=== PATIENT | male | born 2000 | race Caucasian/White ===

== ENCOUNTER 2021-10-25 08:14 | Emergency (ER) | payer BC, MEDICAID ==
[2021-10-25] MEDS ORDERED: HYDROmorphone 1 MG/ML Syringe IVPUSH STA (11:18)
[2021-10-25] MEDS ORDERED: Ondansetron 4 MG/2 ML SDV IVPUSH ONE (11:18)
[2021-10-25] MEDS ORDERED: Sodium Chloride 0.9% 10 ML Syringe FLUSH PRN ×2 (11:18→11:41)
[2021-10-25] MEDS ORDERED: Sodium Chloride 0.9% 1,000 ML IV SCH (11:30)
[2021-10-25] MEDS ORDERED: Iopamidol 612 MG/ML 100 ML Bottle IVPUSH ONE (11:41)
[2021-10-25 13:18] LABS: ESTIMATED GFR 111 mL/min (>60)
== END 2021-10-25 15:10 | disposition home or self-care (01) ==
LOC: JD.ED 08:14
DX: R11.2 Nausea with vomiting, unspecified (principal)
CPT/HCPCS: 36415; 74177; 76705; 80053; 80306; 81001; 82436; 83690; 85025; 86140; 96361; 96374; 96375; 99284; J1170; J2405; J3490; J7030; Q9967

== ENCOUNTER 2021-11-09 10:57 | Day surgery (SDC) | payer MEDICAID ==
[~2021-11-09 10:57] MED LIST: Lactated Ringers 1,000 ML IV SCH; Lidocaine 1%/Sod Bicarbonate in NS 8.4% 1 ML Syringe IDERM PRN; Sodium Chloride 0.9% 10 ML Syringe FLUSH PRN; Sodium Chloride 0.9% 10 ML Syringe FLUSH SCH
[2021-11-09] MEDS ORDERED: Propofol 200 MG/20 ML SDV ONE ×3 (13:09→13:27)
[2021-11-09] MEDS ORDERED: Lidocaine 1% 6 ML ONE (13:12)
[2021-11-09] MEDS ORDERED: Midazolam 1 MG/ML 2 ML SDV ONE (13:16)
== END 2021-11-09 14:45 | disposition home or self-care (01) ==
LOC: JD.SDS 10:57
PROVIDERS: ATTEND Surgery
DX: K22.10 Ulcer of esophagus without bleeding (principal); K31.89 Other diseases of stomach and duodenum; K44.9 Diaphragmatic hernia without obstruction or gangrene; E78.00 Pure hypercholesterolemia, unspecified; E66.9 Obesity, unspecified; K21.9 Gastro-esophageal reflux disease without esophagitis; G43.909 Migraine, unspecified, not intractable, without status migrainosus; G47.00 Insomnia, unspecified; F32.A Depression, unspecified; F41.9 Anxiety disorder, unspecified; Z68.41 Body mass index [BMI] 40.0-44.9, adult; Z79.899 Other long term (current) drug therapy; Z79.83 Long term (current) use of bisphosphonates; Z79.2 Long term (current) use of antibiotics; Z79.811 Long term (current) use of aromatase inhibitors; Z98.890 Other specified postprocedural states; Z91.018 Allergy to other foods
CPT/HCPCS: 00731; J2250; J2704; J7120

== ENCOUNTER 2022-07-12 12:31 | Emergency (ER) | payer MEDICAID | END 2022-07-12 14:02 | disposition home or self-care (01) | LOC: JD.ED 12:31 | DX: K08.89 Other specified disorders of teeth and supporting structures (principal); E78.00 Pure hypercholesterolemia, unspecified; K21.9 Gastro-esophageal reflux disease without esophagitis; E66.9 Obesity, unspecified; Z68.35 Body mass index [BMI] 35.0-35.9, adult; Z91.018 Allergy to other foods; Z79.899 Other long term (current) drug therapy | CPT/HCPCS: 99282 ==

== ENCOUNTER 2022-07-20 09:37 | Emergency (ER) | payer MEDICAID | END 2022-07-20 11:23 | disposition home or self-care (01) | LOC: JD.ED 09:37 | DX: K02.9 Dental caries, unspecified (principal); E66.9 Obesity, unspecified; Z68.41 Body mass index [BMI] 40.0-44.9, adult; Z91.018 Allergy to other foods | CPT/HCPCS: 99282 ==

== ENCOUNTER 2022-08-05 10:27 | Emergency (ER) | payer MEDICAID | END 2022-08-05 11:52 | disposition home or self-care (01) | LOC: JD.ED 10:27 | DX: K02.9 Dental caries, unspecified (principal); K21.9 Gastro-esophageal reflux disease without esophagitis; E66.9 Obesity, unspecified; Z68.41 Body mass index [BMI] 40.0-44.9, adult; Z91.018 Allergy to other foods; Z79.899 Other long term (current) drug therapy | CPT/HCPCS: 99282 ==

== ENCOUNTER 2022-12-02 13:05 | Emergency (ER) | payer MEDICAID ==
[2022-12-02] MEDS ORDERED: Ondansetron 4 MG/2 ML SDV IVPUSH ONE (13:22)
[2022-12-02] MEDS ORDERED: Sodium Chloride 0.9% 10 ML Syringe FLUSH PRN ×2 (13:22→13:33)
[2022-12-02] MEDS ORDERED: HYDROmorphone 0.5 MG/0.5 ML Syringe IVPUSH ONE (13:29)
[2022-12-02] MEDS ORDERED: Sodium Chloride 0.9% 1,000 ML IV SCH (13:30)
[2022-12-02] MEDS ORDERED: Iopamidol 612 MG/ML 100 ML Bottle IVPUSH ONE (13:33)
[2022-12-02 13:46] LABS: BASOPHILS ABSOLUTE AUTO 0.03 K/mm3 (0.01-0.08); BASOPHILS PERCENT AUTO 0.3 % (0.1-1.2); EOSINOPHILS ABSOLUTE AUTO 0.11 K/mm3 (0.04-0.54); EOSINOPHILS PERCENT AUTO 0.9 (0.8-7.0); HEMATOCRIT 50.3 % (40.1-51.0); HEMOGLOBIN 16.8 gm/dl (13.7-17.5); IMMATURE GRAN ABSOLUTE AUTO 0.03 K/mm3 (0.00-0.10); IMMATURE GRAN PERCENT AUTO 0.3 % (<=1.0); LYMPHOCYTES ABSOLUTE AUTO 1.56 K/mm3 (1.32-3.57); LYMPHOCYTES PERCENT AUTO 13.1 % (21.8-53.1); MEAN CORPUSCULAR HEMOGLOBIN 29.3 pg (25.7-32.2); MEAN CORPUSCULAR HGB CONC 33.4 g/dl (32.2-35.5); MEAN CORPUSCULAR VOLUME 87.6 fl (79.0-92.2); MEAN PLATELET VOLUME 10.1 fl (9.4-12.3); MONOCYTES PERCENT AUTO 7.5 % (5.3-12.2); NEUTROPHILS PERCENT AUTO 77.9 % (34.0-67.9); PLATELET COUNT,PLT 259 K/mm3 (163-337); RED BLOOD CELL COUNT 5.74 M/mm3 (4.63-6.08); WHITE BLOOD CELL COUNT,WBC 11.93 K/mm3 (4.23-9.07)
[2022-12-02 14:12] LABS: A/G RATIO 1.2 (1-2); ALANINE AMINOTRANSFERASE,ALT 18 U/L (16-63); ALBUMIN 4.5 g/dl (3.4-5.0); ALKALINE PHOSPHATASE 47 U/L (46-116); ANION GAP 17.6 (5-15); ASPARTATE AMNIOTRANSFERASE,AST 17 U/L (15-37); BILIRUBIN TOTAL 2.1 mg/dL (0.2-1.0); BLOOD UREA NITROGEN,BUN 13 mg/dL (7-18); BUN/CREATININE RATIO 11.8 (14-18); C-REACTIVE PROTEIN <0.2 mg/dL (<1.0); CALCIUM 9.7 mg/dL (8.5-10.1); CARBON DIOXIDE,CO2 24 mEq/L (21-32); CREATININE 1.1 mg/dL (0.7-1.3); EST CRCL DRUG DOSING (CG) 109.68 mL/min; ESTIMATED GFR 98 mL/min (>60); GAMMA GLUTAMYL TRANSFERASE,GGT 12 U/L (15-85); GLUCOSE RANDOM 118 mg/dL (70-99); LIPASE 21 U/L (73-393); MAGNESIUM 2.1 mg/dL (1.8-2.4); PROTEIN TOTAL,TP 8.2 g/dl (6.4-8.2); SODIUM,NA 138 mEq/L (136-145)
[2022-12-02 14:16] LABS: CHLORIDE,CL 100 mEq/L (98-107); POTASSIUM,K 3.6 mEq/L (3.5-5.1)
== END 2022-12-02 17:21 | disposition home or self-care (01) ==
LOC: JD.ED 13:05
DX: R10.11 Right upper quadrant pain (principal); R11.2 Nausea with vomiting, unspecified; E66.9 Obesity, unspecified; K21.9 Gastro-esophageal reflux disease without esophagitis; Z79.899 Other long term (current) drug therapy; Z91.018 Allergy to other foods; Z68.37 Body mass index [BMI] 37.0-37.9, adult
CPT/HCPCS: 36415; 74177; 76870; 80053; 82977; 83690; 83735; 84484; 85025; 86140; 93005; 93975; 96361; 96374; 96375; 99284; J1170; J2405; J3490; J7030; Q9967; 93010

== ENCOUNTER 2022-12-08 12:36 | Emergency (ER) | payer MEDICAID ==
[2022-12-08] MEDS ORDERED: Ondansetron 4 MG/2 ML SDV IVPUSH ONE (13:02)
[2022-12-08] MEDS ORDERED: Sodium Chloride 0.9% 1,000 ML IV ONE (13:02)
[2022-12-08 13:40] LABS: BASOPHILS ABSOLUTE AUTO 0.03 K/mm3 (0.01-0.08); BASOPHILS PERCENT AUTO 0.3 % (0.1-1.2); EOSINOPHILS ABSOLUTE AUTO 0.24 K/mm3 (0.04-0.54); EOSINOPHILS PERCENT AUTO 2.3 (0.8-7.0); HEMATOCRIT 48.4 % (40.1-51.0); HEMOGLOBIN 16.3 gm/dl (13.7-17.5); IMMATURE GRAN ABSOLUTE AUTO 0.01 K/mm3 (0.00-0.10); IMMATURE GRAN PERCENT AUTO 0.1 % (<=1.0); LYMPHOCYTES ABSOLUTE AUTO 1.56 K/mm3 (1.32-3.57); LYMPHOCYTES PERCENT AUTO 15.2 % (21.8-53.1); MEAN CORPUSCULAR HEMOGLOBIN 29.8 pg (25.7-32.2); MEAN CORPUSCULAR HGB CONC 33.7 g/dl (32.2-35.5); MEAN CORPUSCULAR VOLUME 88.5 fl (79.0-92.2); MEAN PLATELET VOLUME 10.1 fl (9.4-12.3); MONOCYTES ABSOLUTE AUTO 0.73 K/mm3 (0.30-0.82); MONOCYTES PERCENT AUTO 7.1 % (5.3-12.2); NEUTROPHILS ABSOLUTE AUTO 7.69 K/mm3 (1.78-5.38); PLATELET COUNT,PLT 237 K/mm3 (163-337); RED BLOOD CELL COUNT 5.47 M/mm3 (4.63-6.08); WHITE BLOOD CELL COUNT,WBC 10.26 K/mm3 (4.23-9.07)
[2022-12-08 14:05] LABS: A/G RATIO 1.2 (1-2); ALANINE AMINOTRANSFERASE,ALT 21 U/L (16-63); ALBUMIN 4.1 g/dl (3.4-5.0); ALKALINE PHOSPHATASE 38 U/L (46-116); ANION GAP 13.7 (5-15); ASPARTATE AMNIOTRANSFERASE,AST 23 U/L (15-37); BILIRUBIN TOTAL 1.4 mg/dL (0.2-1.0); BLOOD UREA NITROGEN,BUN 9 mg/dL (7-18); BUN/CREATININE RATIO 7.5 (14-18); C-REACTIVE PROTEIN <0.2 mg/dL (<1.0); CARBON DIOXIDE,CO2 26 mEq/L (21-32); CHLORIDE,CL 103 mEq/L (98-107); CREATININE 1.2 mg/dL (0.7-1.3); EST CRCL DRUG DOSING (CG) 94.21 mL/min; ESTIMATED GFR 88 mL/min (>60); GLUCOSE RANDOM 106 mg/dL (70-99); LIPASE 26 U/L (73-393); POTASSIUM,K 3.7 mEq/L (3.5-5.1); PROTEIN TOTAL,TP 7.5 g/dl (6.4-8.2); SODIUM,NA 139 mEq/L (136-145)
[2022-12-08] MEDS ORDERED: HYDROmorphone 0.5 MG/0.5 ML Syringe IVPUSH ONE (14:08)
[2022-12-08 14:12] LABS: CALCIUM 9.1 mg/dL (8.5-10.1)
== END 2022-12-08 18:00 | disposition home or self-care (01) ==
LOC: JD.ED 12:36
DX: R10.11 Right upper quadrant pain (principal); K21.9 Gastro-esophageal reflux disease without esophagitis; E66.9 Obesity, unspecified; Z79.899 Other long term (current) drug therapy; Z91.018 Allergy to other foods; Z68.39 Body mass index [BMI] 39.0-39.9, adult
CPT/HCPCS: 36415; 76705; 80053; 82977; 83690; 85025; 86140; 96361; 96374; 96375; 99284; J1170; J2405; J7030

== ENCOUNTER 2023-11-16 12:29 | Emergency (ER) | payer MEDICAID ==
[2023-11-16] MEDS: Ondansetron 4 MG/2 ML SDV IVPUSH ONE (13:12)
[2023-11-16] MEDS: HYDROmorphone 0.5 MG/0.5 ML Syringe IVPUSH ONE (13:16)
[2023-11-16] MEDS: Sodium Chloride 0.9% 1,000 ML IV STA (13:19)
[2023-11-16] MEDS: Sodium Chloride 0.9% 10 ML Syringe FLUSH PRN (13:20)
[2023-11-16 13:22] LABS: BASOPHILS ABSOLUTE AUTO 0.1 K/mm3 (0.0-0.2); BASOPHILS PERCENT AUTO 0.3 % (0.0-1.0); EOSINOPHILS PERCENT AUTO 0.2 % (0.0-6.0); HEMATOCRIT 44.8 % (42.0-52.0); HEMOGLOBIN 15.3 gm/dl (14.0-18.0); IMMATURE GRAN ABSOLUTE AUTO 0.09 K/mm3 (0.00-0.05); IMMATURE GRAN PERCENT AUTO 0.6 % (0.0-0.4); LYMPHOCYTES ABSOLUTE AUTO 1.2 K/mm3 (1.0-4.8); LYMPHOCYTES PERCENT AUTO 8.2 % (24.0-44.0); MEAN CORPUSCULAR HEMOGLOBIN 30.2 pg (28.0-32.0); MEAN CORPUSCULAR HGB CONC 34.2 g/dl (32.0-36.0); MEAN CORPUSCULAR VOLUME 88.4 fl (83.0-99.0); MEAN PLATELET VOLUME 9.7 fl (9.4-12.4); MONOCYTES ABSOLUTE AUTO 0.6 K/mm3 (0.0-0.8); MONOCYTES PERCENT AUTO 4.4 % (0.0-8.0); NEUTROPHILS ABSOLUTE AUTO 12.5 K/mm3 (1.8-7.7); NEUTROPHILS PERCENT AUTO 86.3 % (41.0-71.0); PLATELET COUNT,PLT 208 K/mm3 (150-400); RED BLOOD CELL COUNT 5.07 M/mm3 (4.52-5.90); WHITE BLOOD CELL COUNT,WBC 14.54 K/mm3 (3.9-11.3)
[2023-11-16] MEDS: Iopamidol 612 MG/ML 100 ML Bottle IVPUSH ONE (13:32)
[2023-11-16] MEDS: Sodium Chloride 0.9% 10 ML Syringe FLUSH ONE (13:32)
[2023-11-16 14:04] LABS: A/G RATIO 1.5 (1-2); ALBUMIN 4.2 g/dl (3.4-5.0); ANION GAP 17.3 (5-15); BILIRUBIN TOTAL 2.2 mg/dL (0.2-1.0); CALCIUM 9.4 mg/dL (8.5-10.1); EST CRCL DRUG DOSING (CG) 123.41 mL/min; MAGNESIUM 1.9 mg/dL (1.8-2.4); POTASSIUM,K 3.3 mEq/L (3.5-5.1); PROTEIN TOTAL,TP 7.1 g/dl (6.4-8.2)
[2023-11-16] MEDS: Sodium Chloride 0.9% 1,000 ML IV ONE (14:31)
[2023-11-16] MEDS: Metoclopramide 10 MG/2 ML SDV IVPUSH ONE (15:15)
[2023-11-16 15:36] LABS: APPEARANCE,URINE CLEAR (Clear); BILIRUBIN,URINE NEGATIVE (Negative); COLOR,URINE YELLOW (Yellow); GLUCOSE,URINE NEGATIVE (Negative); KETONES,URINE 2+ (Negative); LEUKOCYTE ESTERASE,URINE NEGATIVE (Negative); NITRITE,URINE NEGATIVE (Negative); OCCULT BLOOD,URINE NEGATIVE (Negative); PROTEIN,URINE NEGATIVE (Negative); UROBILINOGEN,URINE 0.2 (0.2-1.0)
[2023-11-16 15:49] LABS: BARBITURATE SCREEN,URINE NEGATIVE (CUTOFF=200); BENZODIAZEPINES SCREEN,URINE NEGATIVE (CUTOFF=150); BUPRENORPHINE SCREEN,URINE NEGATIVE (CUTOFF=10); METHADONE SCREEN, URINE NEGATIVE (CUT0FF=200); METHAMPHETAMINES SCREEN, URINE NEGATIVE (CUTOFF=500); OXYCODONE SCREEN,URINE NEGATIVE (CUT0FF=100); THC SCREEN,URINE 20 NG/ML PRESUMPTIVE POSITIVE (CUTOFF=50)
[2023-11-16 15:51] LABS: AMPHETAMINES SCREEN, URINE NEGATIVE (CUTOFF=500)
[2023-11-16 15:57] LABS: BACTERIA,URINE RARE /hpf (FEW); MUCUS,URINE RARE /hpf (FEW); RBC,URINE 0-5 /hpf (0-5); SQUAMOUS EPITHELIAL CELLS,UR NOT SEEN /hpf (0-5); WBC,URINE 0-5 /hpf (0-5)
== END 2023-11-16 16:40 | disposition home or self-care (01) ==
LOC: JD.ED 12:29
DX: R11.2 Nausea with vomiting, unspecified (principal); R10.84 Generalized abdominal pain; I10 Essential (primary) hypertension; E66.9 Obesity, unspecified; Z79.899 Other long term (current) drug therapy; Z91.048 Other nonmedicinal substance allergy status
CPT/HCPCS: 36415; 74177; 80053; 80306; 81001; 83690; 83735; 85025; 96361; 96374; 96375; 99284; J1170; J2405; J2765; J3490; J7030; Q9967